=== PATIENT | female | born 1985 | race Caucasian/White ===

== ENCOUNTER 2021-06-03 15:37 | Outpatient (CLI) | payer BC, SELFPAY ==
--- NOTE | ~2021-06-03 | MM_ITS ---
EXAMINATION: MM screening ania BI w hunter HISTORY: Screening TECHNIQUE: Craniocaudal and mediolateral oblique 3-D tomosynthesis images were obtained and synthetic 2-D images were generated. CAD analysis was submitted and interpreted. COMPARISON: No prior mammogram is available for comparison at this institution. BREAST PARENCHYMAL COMPOSITION: The breasts are heterogeneously dense, which may obscure small masses . FINDINGS: There are asymmetries in the left breast on CC view, not definitely seen on MLO view. There is focal asymmetry of the right breast medially. IMPRESSION: 1. Bilateral breast asymmetries. 2. Additional mammographic views and possible breast ultrasound are recommended. BI-RADS Category 0: Incomplete: Needs additional imaging evaluation. Reviewed, dictated and finalized at location A. IMPRESSION: 1. Bilateral breast asymmetries. 2. Additional mammographic views and possible breast ultrasound are recommended . BI-RADS Category 0: Incomplete: Needs additional imaging evaluation.
== END 2021-06-03 15:38 | disposition home or self-care (01) ==
LOC: ANHIMG 15:40
PROVIDERS: Visit Provider Surgery Plastic and Reconstructive Surgery
DX: Z12.31 Encounter for screening mammogram for malignant neoplasm of breast (principal); R92.8 Other abnormal and inconclusive findings on diagnostic imaging of breast
CPT/HCPCS: 77063; 77067

== ENCOUNTER 2021-06-24 12:23 | Outpatient (CLI) | payer BC, SELFPAY ==
--- NOTE | ~2021-06-24 | MMUS_ITS ---
EXAMINATION: MM diagnostic ania BI w hnuter, US breast BI complete HISTORY: Follow-up breast asymmetries TECHNIQUE: Additional 3-D tomosynthesis images of the breasts were performed and synthetic 2-D images were generated. CAD analysis was submitted and interpreted. High resolution complete bilateral breas t ultrasound was performed. COMPARISON: 06/03/2021 BREAST PARENCHYMAL COMPOSITION: The breasts are heterogenously dense, which may obscure small masses. FINDINGS: MAMMOGRAPHIC FINDINGS: There are no suspicious masses, calcifications or architectural distortion to suggest malignancy. ULTRASOUND: Complete bilateral US of all 4 quadrants of the breasts and retroareolar region was reviewed. Normal heterogeneous echotexture without focal solid or cystic mass. IMPRESSION: 1. No evidence for malignancy in either breast. 2. Routine yearly screening mammogram and regular clinical breast examination are recommended. BI-RADS Category 1: Negative Reviewed, dictated and finalized at location A. IMPRESSION: 1. No evidence for malignancy in either breast. 2. Routine yearly screening mammogram and regular clinical breast examination a re recommended. BI-RADS Category 1: Negative
== END 2021-06-24 12:24 | disposition home or self-care (01) ==
LOC: ANHIMG 12:24
PROVIDERS: PCP Obstetrics & Gynecology; Visit Provider Surgery Plastic and Reconstructive Surgery
DX: R92.8 Other abnormal and inconclusive findings on diagnostic imaging of breast (principal)
CPT/HCPCS: 76641; 77062; 77066; G0279

== ENCOUNTER 2021-07-02 07:25 | Day surgery (SDC) | payer OTHER, SELFPAY ==
[2021-06-10 14:33] VITALS: BMI 23.2
--- NOTE | 2021-07-01 11:48 | WPDANESEPPF ---
Anes - Initial Pre Proc Eval Procedure: Operation Date: 07/02/21 09:00 Proposed Procedures p Bilateral Breast Augmentation Mammoplasty - Teodoro Burger MD s Bilateral Breast Mastopexy - Teodoro Burger MD Date/Time: 07/01/21 11:48 Surgeon: Teodoro Burger MD Pre Op Diagnosis: Micromastia and Breast Ptosis Patient Data Age: 36 Gender: F Height: 1.57 m Weight: 57.7 kg Allergies Allergy/AdvReac Type Severity Reaction Status Date / Time No Known Allergies Allergy Mild Verified 07/02/21 07:32 Home Medications Medication Instructions Recorded Confirmed Type norgestimate-ethinyl estradiol 1 tablet PO DAILY #84 tablet 05/17/21 06/10/21 Rx 0.18 mg/0.215mg/0.25mg-35 mcg(28)tablet docusate sodium 100 mg capsule 100 mg PO DAILY #14 cap 06/15/21 Rx ondansetron HCl 4 mg tablet 4 mg PO Q8H #21 tablet 06/15/21 Rx carisoprodol 350 mg tablet 350 mg PO TID PRN #21 tablet 06/20/21 06/20/21 Rx oxycodone-acetaminophen 5 mg-325 1 tablet PO Q6H PRN #15 tablet 06/20/21 06/20/21 Rx mg tablet Patient hx anesthesia problems: none Family hx anesthesia problems: none Results Review: All pre-operative results and documents have been reviewed as part of the pre-operative evaluation. [facility] Surgical History Surgical History History of Family History Family History Grandparent Cerebrovascular accident Diabetes mellitus Social History Social History Smoking status: Never smoker Second hand tobacco smoke exposure: No Alcohol intake: never Anes - Eval Final PreProcedure Day of Procedure 07/01/21 11:48 Patient weight: normal Heart: regular rate and rhythm Lungs: clear to auscultation and normal air movement Airway: Mallampati scale class 1 Neurological: alert and oriented Last oral intake: >/= 8 hours ASA classification: I Emergent: no Anesthetic plan: proceed Anesthesia type and monitoring: general LMA and standard monitoring Results Review: All pre-operative results and documents have been reviewed as part of the pre-operative evaluation. Informed Consent: The patient's anesthetic plan and its attendant risks and benefits were discussed with the patient/family/POA. Questions were solicited and answers provided to the satisfaction of the patient/family/POA.
[2021-07-02] VITALS (7 sets, daily range): BP systolic 90–101; BP diastolic 54–73; PULSE 39–52; RESP 10–16; TEMP 36.7; O2SAT 100; BMI 22.8
[2021-07-02] MEDS: SCOPOLAMINE 1.5 MG PATCH TRANSDERM (08:05)
[2021-07-02] MEDS: LACTATED RINGERS 1,000 ML 30 ML IV CONT ×2 (08:05→10:57)
--- NOTE | 2021-07-02 08:12 | WPDHPUPDATE1 ---
History and Physical Update Update Date/Time: 07/02/21 08:12 History and Physical has been reviewed, including an updated exam of the patient. There are NO changes in the patient's condition. Risks, benefits, and alternatives have been discussed and questions answered. Patient agrees to proceed with procedure.
--- NOTE | 2021-07-02 08:32 | P.OP_ITS ---
Procedure Note - Detailed Date of Procedure 07/02/21 Pre-op Diagnosis Micromastia and Breast Ptosis Post-op Diagnosis same Procedure Performed Bilateral Augmentation Mastopexy Surgeon Teodoro Burger MD Anesthesia general Findings Inverted T Superior Pedicle Bilateral Natrelle 375cc SoftTouch Implants Right - REF# [id number] SN [id number] Left - REF# [id number] SN [id number] Description of Procedure She is here today for bilateral breast augmentation with mastopexy. Previously and again today the risks, benefits, alternatives were discussed in extensive detail. I wanted her to be very realistic about the risks involved as well as expectations. We discussed aftercare and what to monitor for. Made sure answered all of her questions to her satisfaction today and consent was obtained. Marked in the preoperative holding area with their verification. The patient was taken to the operating room placed supine on the operating table. Anesthesia was provided by anesthesiology. A surgical time-out was taken. We cleansed the skin and 1% lidocaine and 0.25% Marcaine with epinephrine was used anesthetize as a field block. She was prepped and draped in a standard sterile fashion. Tegaderm nipple Ayon were placed. I de-epithelialized a small portion at the inferior T junction. A 15 blade used to make an incision just superior to the inframammary fold. Dissection was continued at 45 degree angle until the chest wall as identified. I incised the pectoralis major along its inferior border and completely released the inferior border leaving the medial border intact. I created a subpectoral pocket in the appropriate dimensions based on our preoper ative planning for the implant. I then copiously irrigated with saline solution and verified a strict hemostasis. Next the use a triple antibiotic and Betadine containing solution to irrigate the pocket. I washed my gloves with the triple antibiotic and Betadine solution. We washed the implant immediately upon opening it with this solution and only opened it when we needed it. I used implant funnel and no-touch technique. The implant was introduced into the pocket using the funnel. Having verified positioning of the implant this was closed using 2-0 Vicryl. The breast was tailor tacked into place. Placed in a sitting position and I verified the markings. I marked out the nipple-areolar complex at 38 mm. She is placed supine. I de-epithelialized the superior pedicle. Resected the central and inferior excess tissue leaving the implant well protected with soft tissue. I elevated medial and lateral flaps. Lorene irrigated with saline solution verified strict hemostasis. I closed using 2-0 PDS along the vertical and 2-0 Stratafix along the IMF. This was followed by 3-0 Monocryl vertical and 3-0 Stratafix along the IMF. I used 3-0 Stratafix around the areola and madelyn rything was then closed with running subcuticular 4-0 Monocryl and tissue glue. Fluffs and surgical bra were placed. Patient was awoke and taken to PACU without difficulty. All instrument sponge counts were correct at the end of the case. Estimated Blood Loss 30 Drains No Packing No Pathology none sent Complications No immediate complications Condition stable Disposition PACU
[2021-07-02] MEDS: ceFAZolin SODIUM 2 GM/20 ML SW SYRINGE IV PUSH (08:37)
[2021-07-02] MEDS: BUPIVACAINE HCL 0.25% 50 ML VIAL 40 ML INFILTRATE (09:06)
[2021-07-02] MEDS: LIDO 1%/EPINEPHRINE 1:100,000 20 ML VIAL 40 ML INFILTRATE (09:07)
[2021-07-02] MEDS: fentaNYL CITRATE INJ (*CRX) 100 MCG/2 ML VIAL 25 MCG IV PUSH (11:11)
[2021-07-02] MEDS: oxyCODONE HCL (*CRX) 5 MG TAB IR PO (12:07)
[2021-07-02] MEDS: ONDANSETRON HCL ODT 4 MG TABLET PO (12:43)
--- NOTE | 2021-07-02 14:03 | WPDANESPN ---
Anes - Prog Note Post-Op Date/Time: 07/02/21 1215 Cardiovascular status: normal Respiratory status: normal Airway patency: baseline Mental status: baseline Post-Op hydration status: normal Vital Signs: Last Vital Signs Temp 36.7 C 07/02/21 07:48 Pulse 45 L 07/02/21 12:35 Resp 14 07/02/21 12:35 BP 96/54 L 07/02/21 12:35 Pulse Ox 100 07/02/21 12:35 Pain Score (VAS): 3 I/O: Intake & Output 07/01/21 07/02/21 07/02/21 23:59 07:59 15:59 Intake Total 1000 Balance 1000 Post-procedural complaints: none Patient Feedback: Patient satisfied with anesthetic care. Other Findings: Patient vital signs back to baseline. Patient denies nausea and vomiting. Patient's pain under control. Patient OK for discharge.
== END 2021-07-02 12:55 | disposition home or self-care (01) ==
PROVIDERS: PCP Obstetrics & Gynecology; Visit Provider Surgery Plastic and Reconstructive Surgery
PROC: (CPT 19325; principal; 2021-07-02 09:00)
PROC: (CPT 19316; 2021-07-02 09:00)
DX: N64.82 Hypoplasia of breast (principal)
CPT/HCPCS: 19325

== ENCOUNTER 2021-11-22 13:45 | Outpatient (CLI) | payer BC, SELFPAY ==
[2021-11-22 14:24] LABS: Hemoglobin A1C 5.6 % (<5.7)
[2021-11-22 14:36] LABS: Thyroid Stimulating Hormone 0.46 uIU/mL (0.36-3.74)
[2021-11-25 06:06] LABS: FSH 5.3 mIU/mL (***); LH 4.3 mIU/mL (***); Progesterone 0.3 ng/mL (***)
== END 2021-11-22 13:46 | disposition home or self-care (01) ==
LOC: CHSLAB 13:47
PROVIDERS: PCP Obstetrics & Gynecology; Visit Provider Obstetrics & Gynecology
DX: N91.2 Amenorrhea, unspecified (principal)
CPT/HCPCS: 36415; 83001; 83002; 83036; 84144; 84436; 84443

== ENCOUNTER → 2022-04-29 10:51 | Outpatient (CLI) | payer BC, SELFPAY ==
--- NOTE | ~2022-04-29 | US_ITS ---
EXAMINATION: US pelvic complete w TV DATE: 04/29/2022 11:17 INDICATION: Irregular menstruation TECHNIQUE: Multiple transabdominal and endovaginal sonographic images of the pelvis were obtained. COMPARISON: None. FINDINGS: The uterus measures 10.0 x 3.2 x 4.7 cm. The endometrial complex measures 6 mm. The IUD lola ears to be in expected position. The right ovary measures 3.3 x 1.9 x 2.0 cm. The left ovary measures 2.6 x 1.2 x 1.1 cm. There is normal vascular flow in the ovaries. There is no free fluid in the pelv is. IMPRESSION: 1. No sonographic correlate for the patient's symptoms. 2. IUD in expected position. Reviewed, dictated and finalized at location B.
== END ==
PROVIDERS: PCP Obstetrics & Gynecology; Visit Provider Obstetrics & Gynecology
DX: N92.6 Irregular menstruation, unspecified (principal); Z97.5 Presence of (intrauterine) contraceptive device
CPT/HCPCS: 76830; 76856

== ENCOUNTER 2022-06-11 12:57 | Outpatient (CLI) | payer BC, SELFPAY ==
[2022-06-18 06:13] LABS: LH 4.8 mIU/mL (***); Progesterone 0.2 ng/mL (***)
== END 2022-06-11 12:58 | disposition home or self-care (01) ==
LOC: CHSLAB 12:58
PROVIDERS: PCP Obstetrics & Gynecology; Visit Provider Obstetrics & Gynecology
DX: N92.6 Irregular menstruation, unspecified (principal)
CPT/HCPCS: 36415; 83001; 83002; 84144

== ENCOUNTER 2023-07-12 07:14 | Outpatient (CLI) | payer OTHER, SELFPAY ==
[2023-07-12 08:06] LABS: Hemoglobin A1C 5.4 % (<5.7)
[2023-07-12 08:21] LABS: Free T3 2.33 pg/mL (2.18-3.98); Thyroid Stimulating Hormone 0.76 uIU/mL (0.36-3.74)
[2023-07-15 12:29] LABS: T3 Reverse 12 ng/dL (8-25)
[2023-07-15 12:36] LABS: DHEA-Sulfate 72 mcg/dL (23-266); Sex Hormone Binding Globulin 76 nmol/L (17-124)
[2023-07-16 15:40] LABS: Progesterone 0.2 ng/mL (***)
[2023-07-17 12:12] LABS: Insulin Level Total 2.8 uIU/mL (<=18.4)
[2023-07-17 15:07] LABS: Thyroid Stimulating Immunoglob <89 % baseline (<140)
[2023-07-17 22:36] LABS: Estradiol, Ultrasensitive 73 pg/mL
[2023-07-18 10:56] LABS: Testosterone Total 22 ng/dL (2-45)
[2023-07-20 04:55] LABS: Thyroid Peroxidase Antibodies 2 IU/mL (<9)
[2023-07-21 08:48] LABS: Estrone 38; Pregnenolone 12
== END 2023-07-12 07:15 | disposition home or self-care (01) ==
LOC: CHSLAB 07:19
PROVIDERS: PCP Internal Medicine; Visit Provider Nurse Practitioner
DX: Z00.00 Encounter for general adult medical examination without abnormal findings (principal); E03.9 Hypothyroidism, unspecified; R53.82 Chronic fatigue, unspecified; R53.83 Other fatigue; Z79.890 Hormone replacement therapy; Z86.39 Personal history of other endocrine, nutritional and metabolic disease
CPT/HCPCS: 36415; 82627; 82670; 82679; 83036; 83525; 84140; 84144; 84270; 84402; 84403; 84439; 84443; 84445; 84481; 84482; 86376

== ENCOUNTER 2025-02-13 12:02 | Outpatient (CLI) | payer OTHER, SELFPAY ==
--- NOTE | ~2025-02-13 | MM_ITS ---
EXAMINATION: MM scrn ania implant BI w hunter HISTORY: Screening mammogram TECHNIQUE: Craniocaudal and mediolateral oblique 3-D tomosynthesis images with implant displacement a nd synthetic 2-D images were generated. Craniocaudal and mediolateral oblique views of the breasts wi thout implant displacement were obtained using full field digital mammography. CAD analysis was submi tted and interpreted. COMPARISON: 06/24/2021, 06/03/2021 BREAST PARENCHYMAL COMPOSITION: The breasts are extremely dense, which lowers the sensitivity of mamm ography. FINDINGS: There is no evidence of suspicious mass, calcification, or architectural distortion to sugg est malignancy in either breast. There has been no suspicious interval change. IMPRESSION: No mammographic evidence of malignancy. Recommend routine screening mammography in one year. BI-RADS Category 1: Negative Reviewed, dictated and finalized at location .
== END 2025-02-13 12:03 | disposition home or self-care (01) ==
LOC: CHSIMG 12:03
PROVIDERS: PCP Internal Medicine; Visit Provider Obstetrics & Gynecology
DX: Z12.31 Encounter for screening mammogram for malignant neoplasm of breast (principal)
CPT/HCPCS: 77063; 77067